=== PATIENT | male | born 1945 | race Caucasian/White ===

== ENCOUNTER 2019-08-27 11:16 | Emergency (ER) | payer MEDICARE, SELFPAY ==
[2019-08-27 11:23] VITALS: BP 129/67; PULSE 89; RESP 18; TEMP 36.6; O2SAT 98
--- NOTE | 2019-08-27 12:04 | ED.GENADULT ---
HPI - General Adult General Chief complaint: Skin/Abscess/Foreign Body Stated complaint: back pain upper Time Seen by Provider: 08/27/19 12:04 Source: patient and RN notes reviewed Mode of arrival: ambulatory Limitations: no limitations History of Present Illness HPI narrative: 74-year-old male presents with complaints of raised area to mid-right back with redness, tenderness, and swelling for the past 14 days. No treatment. Tender to touch. No drainage. History of skin abscess. No fever or chills. No abdominal pain, nausea, and vomiting. Remains active. The patient reports they have not been diagnosed with COVID-19. The patient reports they are not waiting for the results of a COVID-19 lab test. The patient reports they do not have fever, chills, weakness, fatigue, myalgia, or facial swelling. The patient reports they do not have a new or worsening cough or shortness of breath. Denies chest pain. The patient reports they do not have any rhinorrhea, congestion, sore throat, nausea, vomiting, abdominal pain, and diarrhea. Tolerating po intake well. Denies recent traveling. Denies concerns for COVID-19 or exposures been home since [id number] order except for essential household needs, working, and return home. At this time, patient is not suspected of having COVID-19. Some parts of this dictation were generated by voice recognition software and may contain typographical and/or grammatical inaccuracies. Related Data Home Medications Medication Instructions Recorded Confirmed aspirin 325 mg PO DAILY 08/27/19 08/27/19 calcium carbonate-vitamin D3 1 tablet PO DAILY 08/27/19 08/27/19 [Calcium 600 + D(3)] divalproex 500 mg PO Q12H 08/27/19 08/27/19 finasteride 1 mg PO DAILY 08/27/19 08/27/19 insulin aspart U-100 [Novolog 1 sliding scale dose SUBCUT 08/27/19 08/27/19 PenFill U-100 Insulin] DIRECTED insulin glargine [Lantus Solostar 56 unit SUBCUT DAILY 08/27/19 08/27/19 U-100 Insulin] nortriptyline 10 mg PO DAILY 08/27/19 08/27/19 quetiapine 150 mg PO HS 08/27/19 08/27/19 simvastatin 10 mg PO DAILY 08/27/19 08/27/19 tamsulosin 0.4 mg PO DAILY 08/27/19 08/27/19 Allergies Allergy/AdvReac Type Severity Reaction Status Date / Time No Known Drug Allergies Allergy Unknown Verified 09/07/14 11:28 Review of Systems Review of Systems: Narrative: CONSTITUTIONAL: Denies fever, chills, sweats. EYES: Denies visual changes, redness, discharge. ENT: Denies rhinorrhea, congestion, sore throat, otalgia. CARDIOVASCULAR: Denies chest pain, palpitations, edema. RESPIRATORY: Denies dyspnea, wheezing, cough. GASTROINTESTINAL: Denies abdominal pain, nausea, vomiting, diarrhea. GENITOURINARY: Denies dysuria, hematuria, abnormal discharge. SKIN: Denies rash or itching. Complains of raised area to mid-right back with redness, tenderness, and swelling. No drainage. MUSCULOSKELETAL: Denies acute back pain, joint pain, or myalgia. NEUROLOGIC: Denies numbness or focal weakness. PSYCHIATRIC: Denies anxiety or depression. All systems reviewed & are unremarkable except as noted in HPI and below. [facility] Past Medical History Medical History (Updated 08/28/19 @ 00:00 by Pau Quispe) Diabetes History of BPH Umbilical hernia Surgical History Surgical History (Updated 08/27/19 @ 12:10 by CHERELLE Fitzpatrick) History of umbilical hernia repair Family History Family History (Updated 08/27/19 @ 12:11 by CHERELLE Fitzpatrick) Father Malignant neoplasm of prostate Mother No problems noted. Comments At time of signature, I have reviewed and agree with nursing past medical, surgical, social, and family history. Please see nursing chart for further information. There is no relevant family history pertinent to the presenting complaint. Exam Narrative: Exam Narrative: GENERAL: This is a well-nourished, well-developed patient, in no apparent distress. Talking in full sentences without deficit
== END 2019-08-27 12:18 | disposition home or self-care (01) ==
PROVIDERS: Emergency Provider Nurse Practitioner Family; PCP Internal Medicine
DX: L02.212 Cutaneous abscess of back [any part, except buttock and flank] (principal); E11.42 Type 2 diabetes mellitus with diabetic polyneuropathy; I10 Essential (primary) hypertension; N40.0 Benign prostatic hyperplasia without lower urinary tract symptoms; E78.00 Pure hypercholesterolemia, unspecified; Z79.4 Long term (current) use of insulin
CPT/HCPCS: 99203; G0463

== ENCOUNTER 2019-09-07 08:09 | Emergency (ER) | payer MEDICARE, SELFPAY ==
[2019-09-07 08:14] VITALS: BP 153/74; PULSE 89; RESP 20; TEMP 36.8; O2SAT 98
--- NOTE | 2019-09-07 08:19 | ED.GENADULT ---
HPI - General Adult General Chief complaint: Wound/Laceration Stated complaint: abcess on back Time Seen by Provider: 09/07/19 08:28 Source: patient and RN notes reviewed Mode of arrival: ambulatory Limitations: no limitations History of Present Illness HPI narrative: 74-year-old male presents with complaints of raised area to mid-right back with redness, tenderness, and swelling for the past 14 days. Drainage has been for the past 7 days after starting antibiotic and warm compresses. Completed 14 days of Bactrim which was last given on 08/27/19. Tender to touch. No drainage. History of skin abscess. No fever or chills. No abdominal pain, nausea, and vomiting. Remains active. The patient reports they have not been diagnosed with COVID-19. The patient reports they are not waiting for the results of a COVID-19 lab test. The patient reports they do not have fever, chills, weakness, fatigue, myalgia, or facial swelling. The patient reports they do not have a new or worsening cough or shortness of breath. Denies chest pain. The patient reports they do not have any rhinorrhea, congestion, sore throat, nausea, vomiting, abdominal pain, and diarrhea. Tolerating po intake well. Denies recent traveling. Denies concerns for COVID-19 or exposures been home since [id number] order except for essential household needs and return home. At this time, patient is not suspected of having COVID-19. Some parts of this dictation were generated by voice recognition software and may contain typographical and/or grammatical inaccuracies. Related Data Home Medications Medication Instructions Recorded Confirmed aspirin 325 mg PO DAILY 08/27/19 09/07/19 calcium carbonate-vitamin D3 1 tablet PO DAILY 08/27/19 09/07/19 [Calcium 600 + D(3)] divalproex 500 mg PO Q12H 08/27/19 09/07/19 finasteride 1 mg PO DAILY 08/27/19 09/07/19 insulin aspart U-100 [Novolog 1 sliding scale dose SUBCUT 08/27/19 09/07/19 PenFill U-100 Insulin] DIRECTED insulin glargine [Lantus Solostar 56 unit SUBCUT DAILY 08/27/19 09/07/19 U-100 Insulin] nortriptyline 10 mg PO DAILY 08/27/19 09/07/19 quetiapine 150 mg PO HS 08/27/19 09/07/19 simvastatin 10 mg PO DAILY 08/27/19 09/07/19 tamsulosin 0.4 mg PO DAILY 08/27/19 09/07/19 Allergies Allergy/AdvReac Type Severity Reaction Status Date / Time No Known Drug Allergies Allergy Unknown Verified 09/07/14 11:28 Review of Systems Review of Systems: Narrative: CONSTITUTIONAL: Denies fever, chills, sweats. EYES: Denies visual changes, redness, discharge. ENT: Denies rhinorrhea, congestion, sore throat, otalgia. CARDIOVASCULAR: Denies chest pain, palpitations, edema. RESPIRATORY: Denies dyspnea, wheezing, cough. GASTROINTESTINAL: Denies abdominal pain, nausea, vomiting, diarrhea. GENITOURINARY: Denies dysuria, hematuria, abnormal discharge. SKIN: Denies rash or itching. Raised area to mid-right back with redness, tenderness, swelling, and drainage. MUSCULOSKELETAL: Denies acute back pain, joint pain, or myalgia. NEUROLOGIC: Denies numbness or focal weakness. PSYCHIATRIC: Denies anxiety or depression. All systems reviewed & are unremarkable except as noted in HPI and below. [facility] Past Medical History Medical History (Updated 09/07/19 @ 19:21 by CHERELLE Fitzpatrick) Bipolar disorder Depression Diabetes History of BPH Hypercholesteremia Hypertension Manic disorder Umbilical hernia Surgical History Surgical History History of umbilical hernia repair Family History Family History Father Malignant neoplasm of prostate Mother No problems noted. Social History Social History (Updated 09/07/19 @ 09:03 by CHERELLE Fitzpatrick) Smoking status: Former smoker Tobacco type: cigarettes Second hand tobacco smoke exposure: No Smoking end date: 04/13/17 Alcohol in
== END 2019-09-07 09:36 | disposition home or self-care (01) ==
PROVIDERS: Emergency Provider Nurse Practitioner Family; PCP Internal Medicine
DX: L02.212 Cutaneous abscess of back [any part, except buttock and flank] (principal); L72.0 Epidermal cyst; I10 Essential (primary) hypertension; F31.9 Bipolar disorder, unspecified; E11.9 Type 2 diabetes mellitus without complications; N40.0 Benign prostatic hyperplasia without lower urinary tract symptoms; E78.00 Pure hypercholesterolemia, unspecified; Z87.891 Personal history of nicotine dependence; Z79.82 Long term (current) use of aspirin; Z79.4 Long term (current) use of insulin
CPT/HCPCS: 10061; 87070; 87075; 87076; 87205; 99213; G0463

== ENCOUNTER 2019-09-12 11:16 | Emergency (ER) | payer MEDICARE, SELFPAY ==
[2019-09-12 11:20] VITALS: BP 160/79; PULSE 77; RESP 16; TEMP 36.6; O2SAT 100
--- NOTE | 2019-09-12 11:30 | ED.SKABFB ---
HPI - Skin/Abscess/Foreign Bdy General Chief complaint: Skin/Abscess/Foreign Body Stated complaint: sore on upper back Time Seen by Provider: 09/12/19 11:30 Source: patient Mode of arrival: ambulatory Limitations: no limitations History of Present Illness HPI narrative: Jarret Ovalle is a 74 yo male with diabetes, BPH, high cholesterol, former smoker, who comes to express care with a lesion to his right upper back. This is his fourth visit to express care for the same issue. Had an I&D last week with doxycycline started. Is been using yogurt and wants a wound check Related Data Home Medications Medication Instructions Recorded Confirmed aspirin 325 mg PO DAILY 08/27/19 09/12/19 calcium carbonate-vitamin D3 1 tablet PO DAILY 08/27/19 09/12/19 [Calcium 600 + D(3)] divalproex 500 mg PO Q12H 08/27/19 09/12/19 finasteride 1 mg PO DAILY 08/27/19 09/12/19 insulin aspart U-100 [Novolog 1 sliding scale dose SUBCUT 08/27/19 09/12/19 PenFill U-100 Insulin] DIRECTED insulin glargine [Lantus Solostar 56 unit SUBCUT DAILY 08/27/19 09/12/19 U-100 Insulin] nortriptyline 10 mg PO DAILY 08/27/19 09/12/19 quetiapine 150 mg PO HS 08/27/19 09/12/19 simvastatin 10 mg PO DAILY 08/27/19 09/12/19 tamsulosin 0.4 mg PO DAILY 08/27/19 09/12/19 Allergies Allergy/AdvReac Type Severity Reaction Status Date / Time No Known Drug Allergies Allergy Unknown Unknown Verified 09/12/19 11:31 Review of Systems Review of Systems: Narrative: CONSTITUTIONAL: Denies fever, chills, sweats. EYES: Denies visual changes, redness, discharge. ENT: Denies rhinorrhea, congestion, sore throat, otalgia. CARDIOVASCULAR: Denies chest pain, palpitations, edema. RESPIRATORY: Denies dyspnea, wheezing, cough GASTROINTESTINAL: Denies abdominal pain, nausea, vomiting, diarrhea. GENITOURINARY: Denies dysuria, hematuria, abnormal discharge SKIN: Denies rash or itching. Draining eye cyst that has been I&D NEUROLOGIC: Denies numbness, or focal weakness. PSYCHIATRIC: Denies anxiety or depression. [facility] Past Medical History Medical History Bipolar disorder Depression Diabetes History of BPH Hypercholesteremia Hypertension Manic disorder Umbilical hernia Surgical History Surgical History History of umbilical hernia repair Family History Family History Father Malignant neoplasm of prostate Mother No problems noted. Social History Social History Smoking status: Former smoker Tobacco type: cigarettes Second hand tobacco smoke exposure: No Smoking end date: 04/13/17 Alcohol intake: current Substance use: never Gender identity (if verbalized by the patient): Male Comments At time of signature, I agree with nursing past medical, surgical, social and family history. There is no relevant family history pertinent to the presenting complaint. Exam Narrative: Exam Narrative: GENERAL: This is a well-nourished, well-developed patient, in mild distress. HEAD: normocephalic, atraumatic. EYES: Sclera clear/white. Vision is grossly intact. EARS: External ears normal, auditory canals clear and without drainage, TMs normal without perforation. Hearing grossly intact. NOSE: External nose normal without nasal discharge, nares without redness, no rhinorrhea. THROAT: Mucous membranes moist, NECK: Neck supple, non-tender CARDIOVASCULAR: Regular rate and rhythm without murmurs, gallops, or rubs. RESPIRATORY: Clear to auscultation. Breath sounds equal bilaterally. No wheezes, rales, or rhonchi. GASTROINTESTINAL: Abdomen soft, non-tender, SKIN: warm, intact -5 x 6 purpleish area on upper right back with a center area that is ulcerated; , area is not warm, is not actively draining (had I&D last week)-appears to be c
== END 2019-09-12 11:50 | disposition home or self-care (01) ==
PROVIDERS: Emergency Provider Nurse Practitioner; PCP Internal Medicine
DX: L03.312 Cellulitis of back [any part except buttock and flank] (principal); L02.212 Cutaneous abscess of back [any part, except buttock and flank]; Z87.891 Personal history of nicotine dependence; E11.9 Type 2 diabetes mellitus without complications; I10 Essential (primary) hypertension
CPT/HCPCS: 99213; G0463